=== PATIENT | female | born 1985 | race Two or more races ===

== ENCOUNTER → 2017-05-21 | Outpatient (CLI) | payer BC ==
--- NOTE | 2017-05-21 10:22 | USB ---
Reason for exam: clinical finding. History: Family history of breast cancer in grandmother at age 60. Physical Findings: Nurse Summary: noticed lump left breast x 2 weeks ago with pain, states her physician felt (nurse aisha). US Breast LT Left breast ultrasound includes all four quadrants, the retroareolar region and axilla. Finding demonstrates no cystic or solid lesion seen. These results were verbally communicated with the patient and result sheet given to the patient on 05/21/17. ASSESSMENT: Negative, BI-RAD 1 RECOMMENDATION: Clinical management of the left breast. Manage patient on a clinical basis.
== END ==
LOC: RADUSWWP 08:14
PROVIDERS: ATTEND Family Medicine
DX: N63 Unspecified lump in breast (principal)